=== PATIENT | female | born 1945 | race Caucasian/White ===

== ENCOUNTER 2022-05-19 22:11 | Emergency (ER) | payer OTHER ==
[2022-05-20] MEDS ORDERED: DOXYCYCLINE 100 MG TABLET PO STA (00:03)
[2022-05-20] MEDS ORDERED: oxyCODONE/ACET 5/325 Prepack 4 PO STA (00:03)
--- NOTE | 2022-05-20 00:07 | ED Physician Documentation ---
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 She is visiting the area from [place]. She noticed redness starting 6 months ago To the stump site which her Prosthetic rep explained was due to loss of fat at the site and increased friction with her prosthesis.She has been walking more while she is visiting the area. It today she felt increased pain to the site. 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 This evening after removing her sleeve she noticed discoloration to the stump which was not there previously. She denies fevers, chest pain, difficulty breathing, abdominal pain, vomiting.She does not take a blood thinner. Review of Systems Constitutional: denies: Fever Nose: denies: Congestion Cardiac: denies: Chest pain / pressure Respiratory: denies: Dyspnea GI: denies: Abdominal Pain, Vomiting, Diarrhea Skin: reports: Abrasion (s) Musculoskeletal: reports: Extremity pain Neurologic: denies: Generalized weakness PD PAST MEDICAL HISTORY - Present Medications Home Medications: Ambulatory Orders Medication Instructions Recorded Confirmed Doxycycline Monohydrate 100 mg PO BID #14 cap 05/20/22 - Allergies Allergies/Adverse Reactions: Allergies Allergy/AdvReac Type Severity Reaction Status Date / Time cephalexin [From Keflex] Allergy Nausea Verified 05/20/22 00:54 Penicillins Allergy Rash Verified 05/19/22 22:35 voriconazole Allergy Unknown Verified 05/20/22 00:54 PD ED PE NORMAL - General General: Alert and oriented X 3, No acute distress, Well developed/nourished - HEENT HEENT: Atraumatic, Moist mucous membranes - Neck Neck: Supple, no meningeal sign - Cardiac Cardiac: RRR, No murmur, Strong equal pulses - Respiratory Respiratory: No respiratory distress, Clear bilaterally - Abdomen Abdomen: Normal bowel sounds, Soft, Non tender, Non distended - Derm Derm: Warm and dry - Extremities Extremities: Other (Left below-knee amputation, no bony tenderness, callused t hickened area to medial aspect of stump site with 1.5 cm skin crack, Dried blood to the area, faint erythema Noted after scrubbing the wound to remove blood; Stump is warm, well-perfused appearing, No swelling noted) Results - Vitals Vitals: Vital Signs - 24 hr 05/19/22 05/19/22 05/20/22 22:29 23:51 00:53 Temperature 97.7 C H 36.5 C Heart Rate 79 72 Respiratory 16 18 Rate Blood Pressure 121/78 122/64 O2 Saturation 100 96 Oxygen O2 Source Room air PD MEDICAL DECISION MAKING - ED course ED course: Patient with a history of left BKA presenting for evaluation of discoloration and worsening pain at stump site. On evaluation of the stump it appears that there is dried blood to a callused area. I cleaned away the blood and do not se e signs of gangrene. There is mild erythema which could also just be irritation but as there is a deep skin crack in the callus There is a site for infection to enter and I will start the patient on an antibiotic.Patient was counseled on need for close follow-up with her doctor when she returns home to [place] this weekend. She is also advised on strict return precautions. She has no systemic symptoms And site is overall well-appearing with no concerns for deep space infection or abscess. Departure - Departure Disposition: 01 Home, Self Care Clinical Impression: Stump injury Condition: Stable Instructions: ED Infec Skin Cellulitis Prescriptions: Doxycycline Monohydrate 100 mg PO BID #14 cap Comments: You were evaluated for pain and abnormal appearance to your left Amputation site. After cleaning the wound, the discoloration appears to be dried blood. There is a crack in the thickened skin to this area which is likely where the bleeding is coming from.There is no active bleeding.This may be from rubbing against your prosthesis as well as increased activity. At this time, the wound does not appear to be infected but there is high concern it could be infected due to your diabetes as well as the location of the wound. Please keep the area clean and dry and make sure it is well-padded when using the prosthesis.I will start you on an antibiotic As there is some slight redness which could also just be irritation.I have sent the prescription to [facility] in [place]. I have also given you a small amount of pain medication to Help you with any discomfort. I am prescribing a short course of narcotic pain medication for you. These are potentially dangerous and addictive medications that should be used carefully. These medications may constipate you. Take an [id number] stool softener (docusate) twice daily with plenty of water while taking these medications. If you go 24 hours without a bowel movement, take [id number] miralax, per package instructions. Do not drink or drive while taking these medications. If you received narcotic or sedating medications while in the emergency department, do not drive for 24 hours. Store this medication in a safe, secure place and out of reach of children. It is a violation of federal law to give or sell this medication to another person or to use in a manner other than prescribed. The ED will not refill narcotic prescriptions, including prescriptions lost or stolen. To dispose of unwanted medications: 1. [facility] at [address] [place] [address] in [place] has a medication drop box. They accept prescription medications (in pill form) Monday through Monday 9:00 a.m. to 5:00 p.m. 2. The [facility] [employer] accepts prescription medications (in pill form only) for disposal year round. Call for more information. 3. Contact the [facility] for the next [facility] sponsored prescription drug collection event. , x7310, or [phone]; Note that many narcotic pain relievers also contain Tylenol/acetaminophen. Please ensure that your total dose of acetaminophen from all sources does not exceed 3 g (3000 mg) per day. Please follow-up with your doctor upon your return home in [place]. If you have any worsening symptoms such as Increased pain, swelling, redness, fevers or any concerns consider return to the emergency department. Discharge Date/Time: 05/20/22 00:04
[2022-05-20 00:57] VITALS: BP 122/64
== END 2022-05-20 00:04 | disposition home or self-care (01) ==
LOC: ED 22:11
DX: R23.4 Changes in skin texture (principal); E11.9 Type 2 diabetes mellitus without complications; Z89.512 Acquired absence of left leg below knee
CPT/HCPCS: 99282; A9270